=== PATIENT | male | born 2000 | race Caucasian/White ===

== ENCOUNTER 2023-01-20 11:09 | Emergency (ER) | payer OTHER, SELFPAY ==
--- NOTE | ~2023-01-20 | CT_ITS ---
EXAMINATION: CT soft tissue neck w con DATE: 01/20/2023 15:11 INDICATION: Dental abscess concern for deeper infection, left lower tooth. TECHNIQUE: Computed tomography (CT) of the neck was performed with 75 mL Omnipaque-350 intravenous co ntrast. Automated exposure control and iterative reconstruction technique were employed. The dose-meme gth product was 292.15 mGy-cm. COMPARISON: None FINDINGS: The thyroid gland is unremarkable. The submandibular and parotid glands are symmetric. There is n o cervical lymphadenopathy. Left face dermal thickening and subcutaneous stranding. 5 mm low-density, rim-enhancing collection lateral to the left mandibular first molar, with tiny air pocket. There are no masses identified. The superior mediastinum is unremarkable. The airway is unremarkable. P arapharyngeal and pre-glottic fat planes are preserved. Normal enhancing arteries. The orbits are unremarkable. Bilateral maxillary sinus mucosal thickening. Retention cysts/polyps in the left maxi llary sinus. Visualized lung parenchyma is clear. Regional bones are normal for age. IMPRESSION: 5 mm odontogenic abscess lateral to the left mandibular first molar. Left face cellulitis. Reviewed, dictated and finalized at location K.
[2023-01-20 11:20] VITALS: BP 111/74; PULSE 106; RESP 16; TEMP 37.2; O2SAT 100
--- NOTE | 2023-01-20 11:56 | PC.NURSE ---
Pt presents in wanting, per dentist, IV abts for dental abscess. Per pt, abscess was drained at office. packing in place. Pt was RX oral Amoxicillin 875mg BID. one dose taken INTAKE NURSE to ED.
--- NOTE | 2023-01-20 12:57 | ED.DENTAL ---
HPI - Dental/Oral General Chief complaint: Dental/Oral Stated complaint: dental abcess Time Seen by Provider: 01/20/23 12:05 History of Present Illness HPI Narrative: Patient is a 22-year-old male presenting with a dental abscess. Patient states that he saw his dentist today and they drained the abscess. States that they told him to come to the ER for IV antibiotics because they were concerned that the infection has read. States that they started him on oral amoxicillin. States that his pain has significantly improved following the drainage. States he has been using ibuprofen with adequate relief. Reports temperatures of 99.7 at home. No difficulty swallowing or eating. No difficulty breathing. No voice changes. Denies further complaints. Related Data Allergies Allergy/AdvReac Type Severity Reaction Status Date / Time No Known Allergies Allergy Mild Verified 01/20/23 11:12 Review of Systems Review of Systems: All systems reviewed & are unremarkable except as noted in HPI and below Exam Narrative: GENERAL: Nontoxic, no acute distress, pleasant and cooperative HEAD: Normocephalic, atraumatic. EYES: PERRLA and EOMI. ENT: Mucous membranes moist, left-sided facial swelling present, fresh gauze left side of mouth over tooth 19 NECK: Supple. CHEST: No respiratory distress. HEART: Regular rate and rhythm ABDOMEN: Nondistended EXTREMITIES: Normal range of motion SKIN: Warm, dry, no rash. NEURO: Alert and oriented x3. PSYCH: Normal mood and affect. Course Vital Signs Vital signs: Vital Signs Temperature 99.0 F 01/20/23 11:20 Pulse Rate 106 H 01/20/23 11:20 Respiratory Rate 16 01/20/23 11:20 Blood Pressure 111/74 01/20/23 11:20 Pulse Oximetry 100 01/20/23 11:20 Temperature 99.0 F 01/20/23 11:20 Pulse Rate 106 H 01/20/23 11:20 Respiratory Rate 18 01/20/23 17:30 Blood Pressure 111/74 01/20/23 11:20 Pulse Oximetry 100 01/20/23 11:20 MDM - Dental/Oral MDM Narrative Medical decision making narrative: Patient is a 22-year-old male presenting with concerns for worsening dental abscess. Vital stable. Exam remarkable for the above. Blood work is unremarkable. No leukocytosis. CT soft tissue neck with a 5 mm odontogenic abscess left lower mandibular molar consistent with the exam and what was drained by the dentist earlier today. There is facial cellulitis but no evidence of deeper infection. Patient received a dose of Unasyn and has already been started on oral amoxicillin. Feel he is safe for outpatient management. Discussed appropriate supportive care and close dental follow-up. Patient voiced understanding and is agreeable with plan. Discharged in stable condition. Differential Diagnosis Differential diagnosis: Likely gingival abscess, toothache and dental abscess Medical Records Attestation: I reviewed the patient's medical records. Lab Data Attestation: I reviewed the patient's lab results. 01/20/23 13:56 01/20/23 13:56 Labs: Lab Results 01/20/23 Range/Units 13:56 WBC 9.3 (4.5-10.0) K/mm3 RBC 5.21 (4.6-6.20) M/mm3 Hgb 14.8 (14.0-18.0) g/dL Hct 44.5 (42.0-52.0) % MCV 85.4 (80-100) fl MCH 28.4 (26-34) pg MCHC 33.3 (32-36) g/dl RDW 13.0 (11.5-14.5) % Plt Count 190 (150-375) k/mm3 MPV 10.7 H (7.4-10.4) fl Immature Gran % (Auto) 0.5 (0-0.5) % Neut % (Auto) 77.6 H (45.5-73.1) % Lymph % (Auto) 13.4 L (18.3-44.2) % [place] % (Auto) 6.9 (2.6-8.5) % Eos % (Auto) 1.2 (0-4.4) % Baso % (Auto) 0.4 (0.2-1.2) % Lymph # (Auto) 1.25 (0.9-3.2) K/mm3 [place] # (Auto) 0.6 (0.1-0.6) K/mm3 Eos # (Auto) 0.1 (0-0.3) K/mm3 Baso # (Auto) 0.0 (0.0-0.1) K/mm3 Abs Immat Gran (auto) 0.05 H (0.00-0.031) K/mm3 Absolute Neuts (auto) 7.2 H (1.3-6.7) K/mm3 Absolute Nucleated RBC 0.0 (0.0-0.012) K/mm3 Nucleated RBC % 0.0 (0.0-0.2) % Sodium 135 L (137-145) mmol/L Potassium 3.8 (3.4-5.0) mmo
[2023-01-20] MEDS: SODIUM CHLORIDE 0.9% IV 1,000 ML 999 ML IV CONT (13:58)
[2023-01-20] MEDS: KETOROLAC 30 MG/ML VIAL (*BKC) IV PUSH (14:00)
[2023-01-20] MEDS: AMPICILLIN SULB 3 GM/NS 100 ML 3 GM/100 ML VIAL IVPB (14:03)
[2023-01-20 14:34] LABS: Basophils Percent Auto 0.4 % (0.2-1.2); Eosinophils Absolute Auto 0.1 K/mm3 (0-0.3); Eosinophils Percent Auto 1.2 % (0-4.4); Hematocrit 44.5 % (42.0-52.0); Hemoglobin 14.8 g/dL (14.0-18.0); Immature Granulocyte Absolute 0.05 K/mm3 (0.00-0.031); Immature Granulocyte Percent A 0.5 % (0-0.5); Lymphocytes Absolute Auto 1.25 K/mm3 (0.9-3.2); Lymphocytes Percent Auto 13.4 % (18.3-44.2); Mean Corpuscular HGB Conc 33.3 g/dl (32-36); Mean Corpuscular Hemoglobin 28.4 pg (26-34); Mean Corpuscular Volume 85.4 fl (80-100); Mean Platelet Volume 10.7 fl (7.4-10.4); Monocytes Absolute Auto 0.6 K/mm3 (0.1-0.6); Monocytes Percent Auto 6.9 % (2.6-8.5); Neutrophils Absolute Auto 7.2 K/mm3 (1.3-6.7); Neutrophils Percent Auto 77.6 % (45.5-73.1); Platelet Count Result 190 k/mm3 (150-375); Red Blood Count 5.21 M/mm3 (4.6-6.20); White Blood Count 9.3 K/mm3 (4.5-10.0)
[2023-01-20 14:46] LABS: Anion Gap 14 mmol/L (8-16); Blood Urea Nitrogen 11 mg/dL (9-20); Calcium 8.9 mg/dL (8.4-10.2); Carbon Dioxide 19 mmol/L (22-30); Chloride 102 mmol/L (98-107); Estimated CRCL calculation 138 ml/min; Estimated Glomerular Filt Rate > 60; Glucose 78 mg/dL (65-110); Potassium 3.8 mmol/L (3.4-5.0); Sodium 135 mmol/L (137-145)
[2023-01-20 17:30] VITALS: RESP 18
== END 2023-01-20 17:31 | disposition home or self-care (01) ==
PROVIDERS: Emergency Provider Emergency Medicine; PCP Pediatrics
DX: K04.7 Periapical abscess without sinus (principal)
CPT/HCPCS: 36415; 70491; 80048; 85025; 87040; 96361; 96365; 96375; 99284; J0295; J1885; J7030; Q9967

== ENCOUNTER 2024-02-05 11:48 | Emergency (ER) | payer OTHER, SELFPAY ==
--- NOTE | ~2024-02-05 | XR_ITS ---
EXAMINATION: XR chest 2V DATE: 02/05/2024 12:36 INDICATION: 4 days of cough and fever TECHNIQUE: PA and lateral views of the chest were obtained. COMPARISON: None FINDINGS: Mild hyperexpansion of lungs. Patchy airspace opacity left lower lobe consistent with pneumonia. The cardiomediastinal silhouette is normal. Mild pectus excavatum. IMPRESSION: 1. Patchy right lower lobe pneumonia. Reviewed, dictated and finalized at location A.
[2024-02-05 12:03] VITALS: BP 114/81; PULSE 100; RESP 16; TEMP 37; O2SAT 97
[2024-02-05 12:13] LABS: EDSTREPNEGPOS1 Negative (Negative)
--- NOTE | 2024-02-05 12:15 | ED.URI ---
HPI - URI/Sore Throat General Chief Complaint: Upper Respiratory Infection Stated Complaint: Diarrhea/Cough/Fever/Sore Throat Time Seen by Provider: 02/05/24 12:15 History of Present Illness HPI Narrative: 23-year-old male presented with cough, sore throat, diarrhea, and fever for 3 days. Reports fever up to 101 today. Took NyQuil this morning for symptoms. Denies shortness of breath, wheezing, nausea, vomiting, abdominal pain, or lethargy. Related Data Allergies Allergy/AdvReac Type Severity Reaction Status Date / Time No Known Allergies Allergy Mild Verified 01/20/23 11:12 Review of Systems Review of Systems: CONSTITUTIONAL: Denies body aches, reports fever EYES: Denies visual changes, redness, or discharge. ENT: Reports sore throat Denies rhinorrhea, congestion, or otalgia. CARDIOVASCULAR: Denies chest pain, palpitations, or edema. RESPIRATORY: Denies dyspnea. GASTROINTESTINAL: Denies abdominal pain, nausea, vomiting, reports diarrhea. NEUROLOGIC: Denies headache Exam Narrative: GENERAL: well-appearing, no acute distress. EYES: conjunctivae clear ENT: Mucous membranes moist. TMs pearly matamoros with normal light reflex bilaterally; no tragal tenderness. Oropharynx mildly erythematous without lesions. Tonsils not enlarged and without exudate. No drooling, no hoarseness, no trismus, uvula midline. No tripod positioning, hot potato voice, or soft palate swelling. NECK: Supple. No lymphadenopathy CHEST: Right lung with faint exp wheezing, otherwise clear. No respiratory distress, speaks in full sentences. HEART: Regular rate and rhythm. No murmur heard. SKIN: Warm, dry, no rash. NEURO: Alert and oriented x3. Course Course Emergency Course: Patient is aware of diagnosis, understands and agrees to treatment plan. Anticipatory guidance given. Patient agrees to follow-up as directed and is aware of reasons to seek care at the emergency department. Portions of this record may have been created with voice recognition software Level of Care: Express Care Visit Vital Signs Vital signs: Vital Signs Temperature 98.6 F 02/05/24 12:03 Pulse Rate 100 02/05/24 12:03 Respiratory Rate 16 02/05/24 12:03 Blood Pressure 114/81 02/05/24 12:03 Pulse Oximetry 97 02/05/24 12:03 Temperature 98.6 F 02/05/24 12:03 Pulse Rate 100 02/05/24 12:03 Respiratory Rate 16 02/05/24 12:03 Blood Pressure 114/81 02/05/24 12:03 Pulse Oximetry 97 02/05/24 12:03 MDM - URI/Sore Throat MDM Narrative Medical decision making narrative: CXR shows pneumonia RLL. flu, covid, and strep result reviewed with pt. Reviewed Rx. Advise supportive treatments and s/s to go to the ER. Patient is appropriate for outpatient treatment and follow-up. Differential Diagnosis Differential diagnosis: Likely upper respiratory infection, sinusitis, viral infection, bronchitis, influenza and pharyngitis Lab Data Labs: Lab Results 02/05/24 02/05/24 Range/Units 12:11 12:48 POC Influenza A Ag Negative (Negative) POC Influenza B Ag Negative (Negative) POC SARS CoV-2 Ag Negative (Negative) POC Grp A Strep Screen Negative (Negative) Imaging Data Radiologist's impression: Patient: Juan Ramon Patel : 2000 MR#: [id number] Age: 23 Acct:[id number] Loc: [facility] ADM Date: 02/05/24Attending Dr: Ordering Physician: Maddy Fry APRN Date of Service: 02/05/24 Procedure(s): XR chest 2V Accession Number(s): [id number] cc: Maddy Fry APRN; FLORIST PHYSICIAN~ EXAMINATION: XR chest 2V DATE: 02/05/2024 12:36 INDICATION: 4 days of cough and fever TECHNIQUE: PA and lateral views of the chest were obtained. COMPARISON: None FINDINGS: Mild hyperexpansion of lungs. Patchy airspace opacity left lower lobe consistent with pneumonia. The cardiomediastinal silhouette is normal. Mild pectus excavatum. IMPRESSION: 1. Patchy right lower lobe pneumoni
[2024-02-05 12:50] LABS: EDCOVIDSCREEN Negative (Negative); EDINFLUASCREEN Negative (Negative); EDINFLUBSCREEN Negative (Negative)
== END 2024-02-05 13:14 | disposition home or self-care (01) ==
PROVIDERS: Emergency Provider Nurse Practitioner Family
DX: J18.1 Lobar pneumonia, unspecified organism (principal); Z20.822 Contact with and (suspected) exposure to COVID-19
CPT/HCPCS: 71046; 87081; 87426; 87804; 87880; 99213; G0463

== ENCOUNTER 2024-05-07 10:12 | Outpatient (CLI) | payer OTHER, SELFPAY ==
[2024-05-07 10:39] LABS: Basophils Percent Auto 0.7 % (0.2-1.2); Eosinophils Absolute Auto 0.4 K/mm3 (0-0.3); Eosinophils Percent Auto 7.3 % (0-4.4); Hematocrit 44.3 % (42.0-52.0); Hemoglobin 15.2 g/dL (14.0-18.0); Lymphocytes Absolute Auto 2.55 K/mm3 (0.9-3.2); Lymphocytes Percent Auto 45.6 % (18.3-44.2); Mean Corpuscular HGB Conc 34.3 g/dl (32-36); Mean Corpuscular Hemoglobin 28.4 pg (26-34); Mean Corpuscular Volume 82.8 fl (80-100); Mean Platelet Volume 10.2 fl (7.4-10.4); Monocytes Absolute Auto 0.5 K/mm3 (0.1-0.6); Monocytes Percent Auto 9.7 % (2.6-8.5); Neutrophils Absolute Auto 2.1 K/mm3 (1.3-6.7); Neutrophils Percent Auto 36.7 % (45.5-73.1); Platelet Count Result 204 k/mm3 (150-375); Red Blood Count 5.35 M/mm3 (4.6-6.20); Red Cell Distribution Width 13.1 % (11.5-14.5); White Blood Count 5.6 K/mm3 (4.5-10.0)
[2024-05-07 10:53] LABS: Alanine Aminotransferase 13 U/L (6-50); Albumin Level 4.4 g/dL (3.5-5.1); Alkaline Phosphatase 65 U/L (38-126); Anion Gap 8 mmol/L (4-12); Aspartate Amino Transferase 27 U/L (17-59); Bilirubin,Total 2.6 mg/dL (0.2-1.3); Blood Urea Nitrogen 11 mg/dL (9-20); Calcium 9.1 mg/dL (8.4-10.2); Carbon Dioxide 28 mmol/L (22-30); Chloride 103 mmol/L (98-107); Cholesterol 119 mg/dL (0-200); Estimated Glomerular Filt Rate > 60; Glucose 91 mg/dL (65-110); HDL Direct 46 mg/dL; Potassium 3.7 mmol/L (3.4-5.0); Sodium 139 mmol/L (137-145); Triglycerides 59 mg/dL (<150)
[2024-05-07 11:04] LABS: LDL Cholesterol Direct 64 mg/dL
--- OUTSIDE RECORDS SUMMARY | 2024-05-13 06:19 | XMS_ITS | Referral Summary ---
Author Organization [facility] [place] [address] [place] [address] Care Team Providers Care Ruby Engineer Name Role Phone Unavailable Primary Care Provider Unavailabl e Social History Tobacco Use Types Packs/Day Years Used Date Smoking Tobacco: Never Assessed Sex and Gender Information Value Date Recorded Sex Assigned at Not on file Legal Sex Male 9:00 PM PDT Gender Identity Not on file Sexual Orientation Not on file Plan of Treatment Not on file
--- OUTSIDE RECORDS SUMMARY | 2024-05-13 06:19 | XMS_ITS | Clinical Summary ---
Author Organization [facility] [place] Address [address] [place] [address] Care Team Providers Care Director Appointment Name Role Phone Unavailable Primary Care Provider [...]
--- OUTSIDE RECORDS SUMMARY | 2024-05-13 06:19 | XMS_ITS | CCD ---
Author Organization [facility] [place] [address] [place] [address] Care Team Providers Care Houseman Name Role Phone Unavailable Primary Care Provider [...]
--- OUTSIDE RECORDS SUMMARY | 2024-05-13 06:19 | XMS_ITS | Encounter Summary ---
Author Organization [facility] [place] [address] [place] [address] Care Team Providers Care [employer] Salesperson Name Role Phone Unavailable Primary Care Provider Unavailabl e Prior Encounters Date Type Department Care Team Description 05/10/2019 Converted 13x Documents [facility] [address] [place] [phone] <No scans attached> 05/10/2019 Converted CPS Chart Documents [facility] [address] [place] [phone] <No scans attached> 05/10/2019 Converted CPS Chart Documents [facility] [address] [place] [phone] <No scans attached> 05/10/2019 Converted CPS Chart Documents [facility] [address] [place] [address] <No scans attached> 05/10/2019 Converted 13x Documents [facility] [address] [place] [address] <No scans attached> 05/10/2019 Converted 13x Documents [facility] [address] [place] [address] <No scans attached> Plan of Treatment Not on file Procedures Procedure Name Priority Date/Time Associated Diagnosis Comments CONE BEAM CT CAPTURE AND INTERPRETATION WITH FIELD OF VIEW OF BOTH JAWS; WITH OR WITHOUT CRANIUM Routine 03/14/2020 2:00 AM CARDIAC NURSE PERIO CONSULT Routine 03/14/2020 2:00 AM CARDIAC NURSE PANORAMIC RADIOGRAPHIC IMAGE Routine 03/14/2020 2:00 AM CARDIAC NURSE COMPREHENSIVE ORAL EVALUATION - NEW OR ESTABLISHED PATIENT Routine 01/12/2020 2:00 AM CDT PANORAMIC RADIOGRAPHIC IMAGE Routine 01/12/2020 2:00 AM CDT BITEWINGS - FOUR RADIOGRAPHIC IMAGES Routine 01/12/2020 2:00 AM CDT ADDITIONAL X-RAY Routine 01/12/2020 2:00 AM CDT SINGLE X-RAY Routine 01/12/2020 2:00 AM CDT Visit Diagnoses Not on file
--- OUTSIDE RECORDS SUMMARY | 2024-05-13 06:19 | XMS_ITS ---
Author Organization [facility] [place] Address [address] [place] [address] Care Team Providers Care Cnc Supervisor Name Role Phone Unavailable Unavailable Unavailable Surgery Details Not on file Complications Check Surgery Details section. Procedure Estimated Blood Loss Check Surgery Details section. Procedure Findings Check Surgery Details section. Procedure Specimens Taken Check Surgery Details section.
== END 2024-05-07 10:13 | disposition home or self-care (01) ==
LOC: ANHLAB 10:13
PROVIDERS: PCP Internal Medicine; Visit Provider Internal Medicine
DX: Z00.00 Encounter for general adult medical examination without abnormal findings (principal)
CPT/HCPCS: 36415; 80053; 80061; 84443; 85025